=== PATIENT | male | born 1955 | race African-American/Black ===

== ENCOUNTER 2018-08-19 02:04 | Emergency (ER) | payer MEDICAID ==
[~2018-08-19] VITALS: Ht 188 cm; Wt 68.2 kg
[~2018-08-19 02:04] MED LIST: BLOOD PRESSURE MED; DOES NOT REMEMBER
[2018-08-19] MEDS ORDERED: hyDRALAzine 10mg tablet PO SCH (02:30)
[2018-08-19 02:58] VITALS: BP 172/120
== END 2018-08-19 02:59 | disposition home or self-care (01) ==
LOC: ER 02:04
DX: I10 Essential (primary) hypertension (principal); F15.90 Other stimulant use, unspecified, uncomplicated; F11.90 Opioid use, unspecified, uncomplicated; Z59.0 Homelessness
CPT/HCPCS: 99282

== ENCOUNTER 2019-02-25 11:05 | Emergency (ER) | payer MEDICARE, MEDICAID ==
[~2019-02-25] VITALS: Ht 188 cm; Wt 64.0 kg
[2019-02-25 12:40] VITALS: BP 148/100
== END 2019-02-25 12:42 | disposition home or self-care (01) ==
LOC: ER 11:06
DX: S50.852A Superficial foreign body of left forearm, initial encounter (principal); I10 Essential (primary) hypertension; F17.200 Nicotine dependence, unspecified, uncomplicated; F15.90 Other stimulant use, unspecified, uncomplicated; F11.90 Opioid use, unspecified, uncomplicated; Z59.0 Homelessness; W45.8XXA Other foreign body or object entering through skin, initial encounter; Y93.89 Activity, other specified; Y92.89 Other specified places as the place of occurrence of the external cause; Y99.8 Other external cause status
CPT/HCPCS: 73090; 99283

== ENCOUNTER 2019-06-14 17:24 | Inpatient (IN) | payer MEDICARE, MEDICAID ==
[~2019-06-14] VITALS: Ht 188 cm; Wt 81.8 kg
[2019-06-14 19:40] LABS: BASOPHILS % (AUTO) 0.9 % (0-1); EOSINOPHILS # (AUTO) 0.1 X10'3 (0-0.9); EOSINOPHILS % (AUTO) 1.9 % (0-6); HEMATOCRIT 33.1 % (42.0-52.0); HEMOGLOBIN 10.2 g/dl (14.0-17.9); LYMPHOCYTES # (AUTO) 1.2 X10'3 (1.1-4.8); LYMPHOCYTES % (AUTO) 24.9 % (21-51); MEAN CORPUSCULAR HEMOGLOBIN 22.7 PG (27.0-31.0); MEAN CORPUSCULAR HGB CONC 30.8 g/dL (33.0-36.5); MEAN CORPUSCULAR VOLUME 73.6 FL (78-98); MEAN PLATELET VOLUME 8.5 FL (7.4-10.4); MONOCYTES # (AUTO) 0.7 X10'3 (0-0.9); NEUTROPHILS # (AUTO) 2.7 X10'3 (1.8-7.7); NEUTROPHILS % (AUTO) 57.3 % (42-75); PLATELET COUNT 224 X10'3 (140-440); RED CELL DISTRIBUTION WIDTH 15.3 % (11.5-14.5); WHITE BLOOD COUNT 4.7 X10'3 (4.5-11.0)
[2019-06-14 19:52] LABS: PARTIAL THROMBOPLASTIN TIME 27 SECONDS (22-32)
[2019-06-14 19:53] LABS: ALANINE AMINOTRANSFERASE 25 U/L (12-78); ALBUMIN 2.6 G/DL (3.4-5.0); ALBUMIN/GLOBULIN RATIO 0.5 (1.1-1.5); ALKALINE PHOSPHATASE 112 IU/L (46-116); ANION GAP 6 (8-16); ASPARTATE AMINO TRANSFERASE 43 U/L (10-37); BILIRUBIN,TOTAL 0.4 MG/DL (0.1-1.0); BLOOD UREA NITROGEN 35 MG/DL (7-18); BUN/CREATININE RATIO 25.4 (5.4-32.0); CALCIUM 8.9 MG/DL (8.5-10.1); CHLORIDE 104 MMOL/L (99-107); CREATININE 1.38 MG/DL (0.60-1.10); GLUCOSE 124 MG/DL (70-104); POTASSIUM 3.8 MMOL/L (3.5-5.1); SODIUM 138 MMOL/L (135-145); TOTAL CARBON DIOXIDE 28.5 MMOL/L (24-32); TOTAL PROTEIN 7.8 G/DL (6.4-8.2); eGFR 62 ML/MIN
[2019-06-14 19:56] LABS: ETHANOL < 0.010 GM/DL (0.0-0.010); LACTIC SEPSIS 1.6 MMOL/L (0.4-2.0); TROPONIN I 0.16 NG/ML (0.0-0.05)
--- NOTE | 2019-06-14 21:37 | NUR ---
PT UNABLE TO ACCURATELY STATE HIS HOME MEDICATIONS, STATES "I TAKE A BLOOD PRESSURE PILL" BUT IS UNSURE OF NAME OR DOSAGE.
[2019-06-14 21:41] LABS: CLARITY,URINE CLEAR (Clear); COLOR,URINE YELLOW (Yellow); GLUCOSE, URINE 100 mg/dl (Neg); KETONES,URINE NEGATIVE (Neg); LEUKOCYTE ESTERASE ,URINE NEGATIVE (Neg); NITRITES, URINE NEGATIVE (Neg); OCCULT BLOOD,URINE SMALL (Neg); PROTEIN,URINE NEGATIVE (Neg); UA COLLECTION TYPE URINAL
[2019-06-14 21:43] LABS: BACTERIA,URINE NONE SEEN /HPF (Neg); MUCUS STRANDS NONE SEEN /LPF (Neg); SQUAMOUS EPITHELIAL CELL,UR NONE SEEN /LPF (FEW); WBC,URINE NONE SEEN /HPF (0-4)
[2019-06-14 21:54] LABS: URINE AMPHETAMINE SCREEN POSITIVE (Neg); URINE BARBITUATE SCREEN NEGATIVE (Neg); URINE BENZODIAZEPINES SCREEN NEGATIVE (Neg); URINE CANNABINOID SCREEN NEGATIVE (Neg); URINE COCAINE SCREEN NEGATIVE (Neg); URINE METHADONE SCREEN NEGATIVE (Neg); URINE OPIATE SCREEN POSITIVE (Neg); URINE PHENCYCLIDINE SCREEN NEGATIVE (Neg)
[2019-06-14] MEDS ORDERED: ondansetron/PF 4mg/2ml inj IV PRN (22:55)
[2019-06-14] MEDS ORDERED: HYDROcodone/acetaminophen 10/325mg tab PO PRN (22:55)
[2019-06-14] MEDS ORDERED: acetaminophen 325mg tablet PO PRN (22:55)
[2019-06-14] MEDS ORDERED: mag hydrox/Alum hydrox/simeth 30ml oral suspension PO PRN (22:55)
[2019-06-14] MEDS ORDERED: magnesium hydroxide 30ml (MOM) UD suspension PO PRN (22:55)
--- NOTE | 2019-06-15 05:50 | NUR ---
HOSPITALIST ANGELICA NOTIFIED OF PT CONTINUED ELEVATED TROPONIN. NO NEW ORDERS AT THIS TIME.
[2019-06-15 05:54] LABS: ALANINE AMINOTRANSFERASE 24 U/L (12-78); ALBUMIN 2.4 G/DL (3.4-5.0); ALBUMIN/GLOBULIN RATIO 0.5 (1.1-1.5); ALKALINE PHOSPHATASE 117 IU/L (46-116); ANION GAP 4 (8-16); ASPARTATE AMINO TRANSFERASE 40 U/L (10-37); BILIRUBIN,TOTAL 0.4 MG/DL (0.1-1.0); BLOOD UREA NITROGEN 32 MG/DL (7-18); BUN/CREATININE RATIO 26.4 (5.4-32.0); CALCIUM 8.7 MG/DL (8.5-10.1); CHLORIDE 106 MMOL/L (99-107); CREATININE 1.21 MG/DL (0.60-1.10); GLUCOSE 93 MG/DL (70-104); POTASSIUM 4.3 MMOL/L (3.5-5.1); SODIUM 139 MMOL/L (135-145); TOTAL PROTEIN 7.6 G/DL (6.4-8.2); TROPONIN I 0.18 NG/ML (0.0-0.05); eGFR 72 ML/MIN
--- NOTE | 2019-06-15 07:20 | NUR ---
Report received from Macrina PAIZ in the ED. Patient brought to room 3027B. Placed in bed, oriented to room and call light. Tele monitor applied, IV assessed, nasal swab taken. Patient stable at this time, has no complaints. Will continue to monitor patient.
[2019-06-15] MEDS: heparin, porcine 5000 units/ml vial SQ SCH ×3 (08:00→20:00)
--- NOTE | 2019-06-15 08:41 | NUR ---
Pt refused AM dose of SQ heparin. Educated patient on purpose of medication and risks associated with not receiving medication. Pt states that he still does not want this medication. Notified MD Stern or pt refusal of medication.
[2019-06-15 09:23] LABS: BASOPHILS # (AUTO) 0.1 X10'3 (0-0.2); BASOPHILS % (AUTO) 1.2 % (0-1); EOSINOPHILS # (AUTO) 0.1 X10'3 (0-0.9); HEMOGLOBIN 10.8 g/dl (14.0-17.9); MONOCYTES # (AUTO) 0.5 X10'3 (0-0.9); NEUTROPHILS % (AUTO) 64.6 % (42-75)
[2019-06-15 09:25] LABS: EOSINOPHILS % (AUTO) 2.9 % (0-6); HEMATOCRIT 34.6 % (42.0-52.0); LYMPHOCYTES # (AUTO) 0.8 X10'3 (1.1-4.8); MEAN CORPUSCULAR HEMOGLOBIN 22.9 PG (27.0-31.0); MEAN CORPUSCULAR HGB CONC 31.3 g/dL (33.0-36.5); MEAN CORPUSCULAR VOLUME 73.2 FL (78-98); MEAN PLATELET VOLUME 8.9 FL (7.4-10.4); MONOCYTES % (AUTO) 12.3 % (2-12); NEUTROPHILS # (AUTO) 2.8 X10'3 (1.8-7.7); PLATELET COUNT 240 X10'3 (140-440); RED BLOOD COUNT 4.72 X10'6 (4.70-6.10); RED CELL DISTRIBUTION WIDTH 15.1 % (11.5-14.5); WHITE BLOOD COUNT 4.4 X10'3 (4.5-11.0)
[2019-06-15 09:32] LABS: D-DIMER 1.43 MG/L FEU (0-0.50)
[2019-06-15 11:00] VITALS: BP 168/90
[2019-06-15] MEDS: furosemide 20 MG/2 ML vial IV SCH ×2 (11:28→20:00)
[2019-06-15] MEDS: metoprolol succinate 25mg (24-HOUR) SR. Tablet PO SCH (11:28)
[2019-06-15] MEDS ORDERED: NO HOME MEDS (12:19)
--- NOTE | 2019-06-15 15:00 | NUR ---
Patient refused 1500 vital signs. Patient wakes to voice, is on tele monitor, alert but agitated. Will continue to monitor.
--- NOTE | 2019-06-15 17:49 | NUR ---
Patient refused 1500 VS as well as AM heparin. Patient is noncompliant with care, does not want to be awaked for any care activities. Explained to patient that we are trying provide care for him and he says "I don't need anything, just leave me alone". Patient resistant to care, wants to keep sleeping. Will continue to monitor patient and provide support.
[2019-06-15 18:00] VITALS: BP 164/82
--- NOTE | 2019-06-15 18:22 | NUR ---
Problems reprioritized. Patient report given, questions answered & plan of care reviewed with Prudence RN. Patient laying in bed, eyes closed.
--- NOTE | 2019-06-15 18:57 | NUR ---
Patient in room PCU 3027. I have received report from Carmen PAIZ and had the opportunity to ask questions and assume patient care. patient is resting.
--- NOTE | 2019-06-15 21:20 | NUR ---
Attempted to give medication and patient declined. He stated that he did not want to take medication.
[2019-06-15 22:00] VITALS: BP 197/110
[2019-06-15] MEDS ORDERED: metoprolol tartrate 25mg tablet PO ONE (22:55)
[2019-06-16] MEDS ORDERED: cloNIDine 0.1 mg tablet PO ONE (01:20)
[2019-06-16 02:00] VITALS: BP 182/113
--- NOTE | 2019-06-16 03:41 | NUR ---
provider was notified of patient's high blood pressure snd meds were given per MD order. NO improvement in BP an doctor is aware. Addendum: 06/16/19 at 0344 by Summer Morales RN Amended: Links added.
[2019-06-16 06:00] VITALS: BP 176/114
--- NOTE | 2019-06-16 06:06 | NUR ---
Problems reprioritized. Patient report given, questions answered & plan of care reviewed with Carmen PAIZ.Patient is resting but had high blood pressure last night despite medication been given. Will continue motoring patient's BP.
--- NOTE | 2019-06-16 06:19 | NUR ---
Patient in room PCU 3027P. I have received report from Summer PAIZ and had the opportunity to ask questions and assume patient care.
[2019-06-16 07:06] LABS: BASOPHILS # (AUTO) 0.1 X10'3 (0-0.2); MONOCYTES # (AUTO) 0.6 X10'3 (0-0.9); NEUTROPHILS # (AUTO) 3.2 X10'3 (1.8-7.7); RED CELL DISTRIBUTION WIDTH 14.7 % (11.5-14.5)
[2019-06-16 07:09] LABS: BASOPHILS % (AUTO) 1.1 % (0-1); EOSINOPHILS % (AUTO) 0.5 % (0-6); HEMATOCRIT 40.4 % (42.0-52.0); HEMOGLOBIN 12.9 g/dl (14.0-17.9); LYMPHOCYTES # (AUTO) 1.1 X10'3 (1.1-4.8); LYMPHOCYTES % (AUTO) 21.4 % (21-51); MEAN CORPUSCULAR VOLUME 71.8 FL (78-98); MEAN PLATELET VOLUME 9.2 FL (7.4-10.4); MONOCYTES % (AUTO) 11.8 % (2-12); NEUTROPHILS % (AUTO) 65.2 % (42-75); PLATELET COUNT 300 X10'3 (140-440); RED BLOOD COUNT 5.63 X10'6 (4.70-6.10)
[2019-06-16 07:26] LABS: ALANINE AMINOTRANSFERASE 21 U/L (12-78); ALBUMIN 2.8 G/DL (3.4-5.0); ALBUMIN/GLOBULIN RATIO 0.4 (1.1-1.5); ALKALINE PHOSPHATASE 107 IU/L (46-116); ANION GAP 8 (8-16); ASPARTATE AMINO TRANSFERASE 39 U/L (10-37); BILIRUBIN,TOTAL 0.6 MG/DL (0.1-1.0); BLOOD UREA NITROGEN 29 MG/DL (7-18); BUN/CREATININE RATIO 25.2 (5.4-32.0); CALCIUM 9.4 MG/DL (8.5-10.1); CHLORIDE 99 MMOL/L (99-107); CREATININE 1.15 MG/DL (0.60-1.10); GLUCOSE 107 MG/DL (70-104); POTASSIUM 3.7 MMOL/L (3.5-5.1); SODIUM 133 MMOL/L (135-145); TOTAL CARBON DIOXIDE 25.9 MMOL/L (24-32); TOTAL PROTEIN 9.2 G/DL (6.4-8.2); eGFR 77 ML/MIN
[2019-06-16] MEDS: heparin, porcine 5000 units/ml vial SQ SCH (08:00)
[2019-06-16] MEDS: furosemide 20 MG/2 ML vial IV SCH (08:01)
[2019-06-16] MEDS: metoprolol succinate 25mg (24-HOUR) SR. Tablet PO SCH (08:01)
--- NOTE | 2019-06-16 08:05 | NUR ---
Patient refused heparin SubQ this morning. Explained to patient the purpose of the medication and need to have medication, discussed risks of refusing medication. Patient understands, refuses any injections, states "I don't want any needles". Will continue to monitor patient and encourage compliance with care plan.
[2019-06-16] MEDS ORDERED: furosemide 20 MG/2 ML vial IV SCH ×2 (09:11→20:00)
[2019-06-16] MEDS ORDERED: lisinopril 10 MG tablet PO SCH (09:12)
--- NOTE | 2019-06-16 09:17 | NUR ---
Paged hospitalist, Dr. Huston, RE lasix IV order for clarification. PAGER ID: [phone] MESSAGE: Carmen x [phone]. RE Belkis Segovia 3026S. Patient had 20mg Lasix IV this AM. Do you want me to give the 40mg Lasix IV dose now as well? Thank you.
[2019-06-16] MEDS ORDERED: furosemide 20 MG/2 ML vial IV ONE ×2 (09:30→09:45)
[2019-06-16 09:53] VITALS: BP_SYST 171
--- NOTE | 2019-06-16 10:02 | NUR ---
Patient refused Lasix IV. I explained to the patient that his blood pressure is very elevated and he has signs of fluid overload. He again refuses the medication, stating "It just makes me piss all over myself, I don't want it". Reinforced the importance of the medication, he again refuses. Notified charge account identification clerk that patient is refusing care. Noncompliant care plan is in place. Also notified Dr. Huston that patient is refusing medications and vitals. Will continue to monitor patient.
[2019-06-16] MEDS ORDERED: LISI10TA4 PO (10:49)
[2019-06-16] MEDS ORDERED: FURO20TA4 PO (10:49)
--- NOTE | 2019-06-16 11:02 | NUR ---
Per MD order by Dr. Huston, patient is stable for discharge, is refusing all medications and vitals. Per MD patient can be discharged home. I spoke with the patient and states that he has nowhere to go at this time and wants to stay until tomorrow. I have called Kamila from case management, left message and am waiting for a return call.
--- NOTE | 2019-06-16 11:10 | NUR ---
Patient refused 1100 vital signs. Refusing all medications, removed tele monitor himself and is refusing to have it reapplied.
--- NOTE | 2019-06-16 12:03 | NUR ---
Per MD order by Dr. Huston, patient is stable for discharge home. Patient assessed by case management, given clothing, cane, and cab voucher. Cab called and will pick patient up and take to his desired drop [facility]. Discharge packet printed and reviewed with the patient, refuses education. IV removed with cannula intact, tele monitor removed. Patient belongings sent with patient and valuables returned from safe. Prescriptions called to [facility] on [address]. Patient given clothing and cane, as well as cab voucher. Patient escorted to waiting cab via wheelchair to go home.
== END 2019-06-16 10:55 | disposition short-term general hospital (02) | DRG 682 ==
LOC: EDBD → ER 17:25 → ED HOLD 23:03 → PCU 3S 06-15 07:27
PROVIDERS: ADMIT Internal Medicine; ATTEND Internal Medicine
DX: N17.9 Acute kidney failure, unspecified (principal); I50.33 Acute on chronic diastolic (congestive) heart failure; I21.A1 Myocardial infarction type 2; R55 Syncope and collapse; I11.0 Hypertensive heart disease with heart failure; F15.10 Other stimulant abuse, uncomplicated; F17.210 Nicotine dependence, cigarettes, uncomplicated; Z82.49 Family history of ischemic heart disease and other diseases of the circulatory system; D64.9 Anemia, unspecified; Z59.0 Homelessness; W18.39XA Other fall on same level, initial encounter; Y93.89 Activity, other specified; Y92.89 Other specified places as the place of occurrence of the external cause; Y99.8 Other external cause status
CPT/HCPCS: 36415; 70450; 71045; 80053; 80305; 80320; 81001; 82140; 82948; 83605; 83880; 84484; 85025; 85379; 85610; 85730; 87040; 87081; 93005; 93306; 99285; G0378; J1644; J1940

== ENCOUNTER 2019-06-22 13:42 | Inpatient (IN) | payer MEDICARE, MEDICAID ==
[~2019-06-22] VITALS: Ht 188 cm; Wt 62.8 kg
[2019-06-22] MEDS: pantoprazole 40 MG vial IV SCH (08:00)
[~2019-06-22 13:42] MED LIST changes: -BLOOD PRESSURE MED; -DOES NOT REMEMBER; +FURO20TA4 PO; +LISI10TA4 PO
[2019-06-22 14:56] LABS: BASOPHILS # (AUTO) 0.1 X10'3 (0-0.2); BASOPHILS % (AUTO) 0.5 % (0-1); EOSINOPHILS % (AUTO) 0 % (0-6); HEMATOCRIT 37.6 % (42.0-52.0); HEMOGLOBIN 11.9 g/dl (14.0-17.9); LYMPHOCYTES # (AUTO) 0.2 X10'3 (1.1-4.8); LYMPHOCYTES % (AUTO) 0.8 % (21-51); MEAN CORPUSCULAR HEMOGLOBIN 22.8 PG (27.0-31.0); MEAN CORPUSCULAR HGB CONC 31.6 g/dL (33.0-36.5); MEAN PLATELET VOLUME 8.8 FL (7.4-10.4); MONOCYTES # (AUTO) 1.3 X10'3 (0-0.9); MONOCYTES % (AUTO) 6.5 % (2-12); NEUTROPHILS # (AUTO) 18.3 X10'3 (1.8-7.7); NEUTROPHILS % (AUTO) 92.2 % (42-75); PLATELET COUNT 310 X10'3 (140-440); RED BLOOD COUNT 5.22 X10'6 (4.70-6.10); RED CELL DISTRIBUTION WIDTH 15.1 % (11.5-14.5); WHITE BLOOD COUNT 19.9 X10'3 (4.5-11.0)
[2019-06-22] MEDS ORDERED: CefTRIAXone 2gm/D5W 50ml 50 ML IV ONE (15:10)
[2019-06-22 15:13] LABS: ALANINE AMINOTRANSFERASE 78 U/L (12-78); ALBUMIN 2.7 G/DL (3.4-5.0); ALBUMIN/GLOBULIN RATIO 0.5 (1.1-1.5); ALKALINE PHOSPHATASE 99 IU/L (46-116); ANION GAP 24 (8-16); ASPARTATE AMINO TRANSFERASE 89 U/L (10-37); BILIRUBIN,TOTAL 0.7 MG/DL (0.1-1.0); CALCIUM 9.5 MG/DL (8.5-10.1); CHLORIDE 91 MMOL/L (99-107); CREATININE 9.51 MG/DL (0.60-1.10); GLUCOSE 102 MG/DL (70-104); POTASSIUM 5.7 MMOL/L (3.5-5.1); SODIUM 134 MMOL/L (135-145); TOTAL CARBON DIOXIDE 18.7 MMOL/L (24-32); TOTAL PROTEIN 8.7 G/DL (6.4-8.2); eGFR 7 ML/MIN
[2019-06-22 15:15] LABS: LACTIC SEPSIS 1.8 MMOL/L (0.4-2.0)
[2019-06-22 15:22] LABS: ETHANOL < 0.010 GM/DL (0.0-0.010); TROPONIN I 0.11 NG/ML (0.0-0.05)
[2019-06-22 15:23] LABS: BLOOD UREA NITROGEN 206 MG/DL (7-18); BUN/CREATININE RATIO 21.7 (5.4-32.0)
[2019-06-22] MEDS ORDERED: normal saline 1000ML IV soln IVB ONE (15:35)
[2019-06-22 15:55] LABS: CLARITY,URINE SLIGHTLY CLOUDY (Clear); COLOR,URINE YELLOW (Yellow); GLUCOSE, URINE NEGATIVE (Neg); KETONES,URINE NEGATIVE (Neg); LEUKOCYTE ESTERASE ,URINE TRACE (Neg); NITRITES, URINE NEGATIVE (Neg); OCCULT BLOOD,URINE LARGE (Neg); PROTEIN,URINE 100 mg/dl (Neg); UROBILINOGEN,URINE 0.2 E.U/dL (0.2-1.0)
[2019-06-22 15:57] LABS: URINE AMPHETAMINE SCREEN POSITIVE (Neg); URINE BARBITUATE SCREEN NEGATIVE (Neg); URINE BENZODIAZEPINES SCREEN NEGATIVE (Neg); URINE CANNABINOID SCREEN NEGATIVE (Neg); URINE COCAINE SCREEN NEGATIVE (Neg); URINE METHADONE SCREEN NEGATIVE (Neg); URINE OPIATE SCREEN POSITIVE (Neg); URINE PHENCYCLIDINE SCREEN NEGATIVE (Neg)
[2019-06-22 16:02] LABS: UA COLLECTION TYPE CLN CATCH MIDSTREAM
[2019-06-22 16:03] LABS: CREATINE KINASE 821 U/L (39-308)
[2019-06-22 16:03] LABS: BACTERIA,URINE 3+ /HPF (Neg); MUCUS STRANDS FEW /LPF (Neg); SQUAMOUS EPITHELIAL CELL,UR MODERATE /LPF (FEW)
[2019-06-22 16:04] LABS: AMORPHOUS URATES 2+; COARSE GRANULAR CAST 0-3 /LPF (NEGATIVE)
[2019-06-22] MEDS ORDERED: NO HOME MEDS (17:24)
[2019-06-22] MEDS: K, MAG and/or Phos replacement - Verify level? MC SCH (18:00)
[2019-06-22] MEDS ORDERED: normal saline 1000ml 1,000 ML IV SCH (18:02)
[2019-06-22] MEDS ORDERED: magnesium 2GM in 50ml NS 50 ML IV PRN (18:05)
[2019-06-22] MEDS ORDERED: sodium phosphate inj. 30 MMOL in dextrose 5%-water 250 ML IV PRN (18:05)
[2019-06-22] MEDS ORDERED: magnesium 4gm in 100ml NS 100 ML IV PRN (18:05)
[2019-06-22] MEDS ORDERED: acetaminophen 325mg tablet PO PRN (18:05)
[2019-06-22] MEDS ORDERED: ondansetron/PF 4mg/2ml inj IV PRN (18:05)
[2019-06-22] MEDS ORDERED: magnesium Cl slow-release 64mg tablet PO PRN (18:05)
[2019-06-22] MEDS ORDERED: sodium bicarbonate (8.4%) inj. 150 MEQ in dextrose 5%-water 1,000 ML IV SCH (18:15)
--- NOTE | 2019-06-22 18:53 | NUR ---
Yannick carolina in [facility] - 06/22/19 at 1854 by LOU CALLED U/S AT 18:52 SHE WILL BE IN [place]
[2019-06-22] MEDS: sodium bicarbonate (8.4%) inj. 75 MEQ in dextrose 5% water 500ml 500 ML IV SCH ×2 (19:39→23:10)
[2019-06-22 19:50] LABS: ABG BASE EXCESS -10.3 mmol/L (-2.0-3.0); ABG HCO3 15.3 mmol/L (22.0-26.0); ABG OXYGEN SATURATION 98.6 % (95-98); ABG PCO2 (T) 33.1 mmHg (35.0-45.0); ABG PH (T) 7.283 (7.350-7.450); ABG PO2 (T) 140.7 mmHg (83-108); FCOHb 0.3 % (0.5-1.5); FLOW 4 L/min; FMetHb 0.3 % (0.3-1.12); RESPIRATORY RATE (OBSERVED) 12 b/min; TOTAL HEMOGLOBIN 12.1 G/dl (14.0-17.9)
--- NOTE | 2019-06-22 19:50 | NUR ---
Pt refused Hernandez catheter. Bladder scanned post residual and there was 0 remaining.
[2019-06-22 20:00] VITALS: BP 139/73
[2019-06-22] MEDS: CefTRIAXone/D5W-Rocephin 1gm 50 ML IV SCH (20:00)
[2019-06-22] MEDS: sodium polystyrene sulfonate 15gm/60ml oral suspension PO SCH (20:33)
[2019-06-22 21:00] VITALS: BP 147/88
[2019-06-22 22:00] VITALS: BP 153/79
[2019-06-22 23:00] VITALS: BP 146/95
[2019-06-22] MEDS: heparin, porcine 5000 units/ml vial SQ SCH ×2 (23:45→23:58)
[2019-06-22 23:50] LABS: ALANINE AMINOTRANSFERASE 70 U/L (12-78); ALBUMIN 2.4 G/DL (3.4-5.0); ALBUMIN/GLOBULIN RATIO 0.5 (1.1-1.5); ALKALINE PHOSPHATASE 90 IU/L (46-116); ANION GAP 18 (8-16); ASPARTATE AMINO TRANSFERASE 83 U/L (10-37); BILIRUBIN,TOTAL 0.6 MG/DL (0.1-1.0); CALCIUM 8.5 MG/DL (8.5-10.1); CHLORIDE 97 MMOL/L (99-107); CREATININE 8.61 MG/DL (0.60-1.10); GLUCOSE 123 MG/DL (70-104); MAGNESIUM 2.4 MG/DL (1.5-2.4); POTASSIUM 5.4 MMOL/L (3.5-5.1); SODIUM 135 MMOL/L (135-145); TOTAL CARBON DIOXIDE 20.2 MMOL/L (24-32); TOTAL PROTEIN 7.5 G/DL (6.4-8.2); eGFR 8 ML/MIN
[2019-06-22 23:51] LABS: BLOOD UREA NITROGEN 208 MG/DL (7-18); BUN/CREATININE RATIO 24.2 (5.4-32.0); PHOSPHORUS 10.3 MG/DL (2.3-4.5)
--- NOTE | 2019-06-22 23:59 | NUR ---
Pt remains non compliant, refusing Heparin SQ
[2019-06-23] VITALS (24 sets, daily range): BP systolic 128–160; BP diastolic 77–96
[2019-06-23] MEDS: sodium bicarbonate (8.4%) inj. 75 MEQ in dextrose 5% water 500ml 500 ML IV SCH ×4 (03:12→13:45)
[2019-06-23 03:46] LABS: ABG BASE EXCESS -1.6 mmol/L (-2.0-3.0); ABG HCO3 22.6 mmol/L (22.0-26.0); ABG OXYGEN SATURATION 98.6 % (95-98); ABG PCO2 (T) 36.3 mmHg (35.0-45.0); ABG PH (T) 7.412 (7.350-7.450); ABG PO2 (T) 130.6 mmHg (83-108); ALLEN'S TEST Positive; FCOHb 0.3 % (0.5-1.5); FLOW 4 L/min; FMetHb 0.2 % (0.3-1.12); FO2Hb 98.1 % (94-100)
--- NOTE | 2019-06-23 04:33 | NUR ---
Pt still refusing Hernandez Catheter after repeated attempts to place one. He is also resistive to labs, meds, and anything that requires him to be touched.
[2019-06-23 05:25] LABS: BASOPHILS # (AUTO) 0.1 X10'3 (0-0.2); BASOPHILS % (AUTO) 0.3 % (0-1); EOSINOPHILS % (AUTO) 0 % (0-6); HEMATOCRIT 34.8 % (42.0-52.0); HEMOGLOBIN 11.1 g/dl (14.0-17.9); LYMPHOCYTES # (AUTO) 0.4 X10'3 (1.1-4.8); LYMPHOCYTES % (AUTO) 2.2 % (21-51); MEAN CORPUSCULAR HEMOGLOBIN 22.6 PG (27.0-31.0); MEAN CORPUSCULAR HGB CONC 31.8 g/dL (33.0-36.5); MEAN CORPUSCULAR VOLUME 71.2 FL (78-98); MEAN PLATELET VOLUME 8.9 FL (7.4-10.4); MONOCYTES # (AUTO) 1.9 X10'3 (0-0.9); MONOCYTES % (AUTO) 10.1 % (2-12); NEUTROPHILS # (AUTO) 16.3 X10'3 (1.8-7.7); NEUTROPHILS % (AUTO) 87.4 % (42-75); PLATELET COUNT 249 X10'3 (140-440); RED BLOOD COUNT 4.89 X10'6 (4.70-6.10); RED CELL DISTRIBUTION WIDTH 14.6 % (11.5-14.5); WHITE BLOOD COUNT 18.7 X10'3 (4.5-11.0)
--- NOTE | 2019-06-23 05:30 | NUR ---
Rash still seems to be covering same body area, but not as raised on the lower torso. Addendum: 06/23/19 at 0600 by Carole Heck RN Note placed in wrong chart, please disregard
[2019-06-23 05:54] LABS: ALANINE AMINOTRANSFERASE 64 U/L (12-78); ALBUMIN 2.2 G/DL (3.4-5.0); ALBUMIN/GLOBULIN RATIO 0.4 (1.1-1.5); ALKALINE PHOSPHATASE 96 IU/L (46-116); ANION GAP 21 (8-16); ASPARTATE AMINO TRANSFERASE 79 U/L (10-37); BILIRUBIN,TOTAL 0.7 MG/DL (0.1-1.0); CALCIUM 8.4 MG/DL (8.5-10.1); CHLORIDE 97 MMOL/L (99-107); GLUCOSE 118 MG/DL (70-104); MAGNESIUM 2.3 MG/DL (1.5-2.4); POTASSIUM 4.7 MMOL/L (3.5-5.1); SODIUM 139 MMOL/L (135-145); TOTAL CARBON DIOXIDE 20.9 MMOL/L (24-32); TOTAL PROTEIN 7.5 G/DL (6.4-8.2); eGFR 9 ML/MIN
[2019-06-23 06:16] LABS: BLOOD UREA NITROGEN 195 MG/DL (7-18); PHOSPHORUS 9.3 MG/DL (2.3-4.5)
[2019-06-23] MEDS: K, MAG and/or Phos replacement - Verify level? MC SCH (07:18)
[2019-06-23] MEDS: pantoprazole 40 MG vial IV SCH (07:57)
[2019-06-23] MEDS: heparin, porcine 5000 units/ml vial SQ SCH ×2 (08:00→16:00)
[2019-06-23] MEDS: CefTRIAXone/D5W-Rocephin 1gm 50 ML IV SCH ×2 (08:05→20:31)
[2019-06-23] MEDS: sodium polystyrene sulfonate 15gm/60ml oral suspension PO SCH ×2 (08:06→20:00)
[2019-06-23 08:26] LABS: BUN/CREATININE RATIO 25.2 (5.4-32.0); CREATININE 7.74 MG/DL (0.60-1.10)
[2019-06-23 09:53] LABS: ALBUMIN 2.1 G/DL (3.4-5.0); ANION GAP 16 (8-16); CHLORIDE 97 MMOL/L (99-107); CREATININE 6.92 MG/DL (0.60-1.10); GLUCOSE 124 MG/DL (70-104); PHOSPHORUS 8.4 MG/DL (2.3-4.5); POTASSIUM 4.1 MMOL/L (3.5-5.1); SODIUM 140 MMOL/L (135-145); TOTAL CARBON DIOXIDE 26.7 MMOL/L (24-32); eGFR 10 ML/MIN
[2019-06-23 09:57] LABS: BLOOD UREA NITROGEN 182 MG/DL (7-18); BUN/CREATININE RATIO 26.3 (5.4-32.0)
--- NOTE | 2019-06-23 11:34 | NUR ---
Pt with low BMI of 16.4 using current bed scaled wt of 57.8 kg. Pt recently admitted with a documented wt of 81.82 kg using standing scale taken 06/14/19 however this seems unlikely as pt with a documented wt of 64 kg taken 02/25/19 using chair scale. Unable to accurately assess for wt loss at this time given fluctuations in documented wt hx. Pt admit with ALOC with hx substance abuse. Per physical assessment pt is A/O x 2, agitated, restless, and resistive to care. Patient's diet has just been advanced to renal from NPO, pending first meal. Pt documented with 100% PO intake on regular diet at last admit 06/15-06/16 meeting nutrient needs. Pt with no decrease in muscle strength however with bilat foot 3+ edema. Pt currently lacks a minimum of two criteria for malnutrition. Will continue to follow and monitor malnutrition criteria throughout LOS. Addendum: 06/23/19 at [address] Amended: Links added.
[2019-06-23 15:27] LABS: ALBUMIN 1.9 G/DL (3.4-5.0); ANION GAP 15 (8-16); CALCIUM 7.9 MG/DL (8.5-10.1); CHLORIDE 97 MMOL/L (99-107); CREATININE 6.18 MG/DL (0.60-1.10); GLUCOSE 145 MG/DL (70-104); PHOSPHORUS 7.5 MG/DL (2.3-4.5); SODIUM 141 MMOL/L (135-145); TOTAL CARBON DIOXIDE 29.5 MMOL/L (24-32); eGFR 11 ML/MIN
[2019-06-23 15:30] LABS: BLOOD UREA NITROGEN 172 MG/DL (7-18); BUN/CREATININE RATIO 27.8 (5.4-32.0)
[2019-06-23] MEDS: normal saline 1000ml 1,000 ML IV SCH ×2 (16:27→23:55)
--- NOTE | 2019-06-23 18:30 | NUR ---
Patient in room CICU 2009. I have received report from IZABEL Soto and had the opportunity to ask questions and assume patient care.
[2019-06-23 21:31] LABS: ANION GAP 10 (8-16); CALCIUM 7.9 MG/DL (8.5-10.1); CHLORIDE 100 MMOL/L (99-107); CREATININE 5.52 MG/DL (0.60-1.10); GLUCOSE 124 MG/DL (70-104); PHOSPHORUS 6.7 MG/DL (2.3-4.5); POTASSIUM 3.8 MMOL/L (3.5-5.1); SODIUM 141 MMOL/L (135-145); TOTAL CARBON DIOXIDE 30.8 MMOL/L (24-32); eGFR 13 ML/MIN
[2019-06-23 21:32] LABS: BLOOD UREA NITROGEN 163 MG/DL (7-18); BUN/CREATININE RATIO 29.5 (5.4-32.0)
--- NOTE | 2019-06-23 22:14 | NUR ---
Patient being noncompliant with most care. Refused to take kayexalate. refused bath. refused blood draw, resulting in pulling from PIV. refusing to be turned. Despite education patient continues to be noncompliant.
[2019-06-24] VITALS (24 sets, daily range): BP systolic 129–179; BP diastolic 77–105
[2019-06-24] MEDS: normal saline 1000ml 1,000 ML IV SCH ×3 (05:15→21:55)
[2019-06-24 05:22] LABS: BASOPHILS % (AUTO) 0.2 % (0-1); EOSINOPHILS % (AUTO) 0.1 % (0-6); HEMATOCRIT 32.2 % (42.0-52.0); HEMOGLOBIN 10.4 g/dl (14.0-17.9); LYMPHOCYTES # (AUTO) 0.5 X10'3 (1.1-4.8); LYMPHOCYTES % (AUTO) 4.1 % (21-51); MEAN CORPUSCULAR HEMOGLOBIN 22.7 PG (27.0-31.0); MEAN CORPUSCULAR HGB CONC 32.1 g/dL (33.0-36.5); MEAN CORPUSCULAR VOLUME 70.7 FL (78-98); MEAN PLATELET VOLUME 8.2 FL (7.4-10.4); MONOCYTES % (AUTO) 17.6 % (2-12); PLATELET COUNT 222 X10'3 (140-440); RED BLOOD COUNT 4.56 X10'6 (4.70-6.10); RED CELL DISTRIBUTION WIDTH 14.7 % (11.5-14.5); WHITE BLOOD COUNT 11.6 X10'3 (4.5-11.0)
--- NOTE | 2019-06-24 06:20 | NUR ---
Patient in room CICU 2009. I have received report from IZABEL Ricketts and had the opportunity to ask questions and assume patient care.
--- NOTE | 2019-06-24 06:21 | NUR ---
Problems reprioritized. Patient report given, questions answered & plan of care reviewed with IZABEL Cooper.
[2019-06-24 06:22] LABS: ANISOCYTOSIS 1+; MICROCYTOSIS 1+; PLATELET ESTIMATE NORMAL; TOTAL CELLS COUNTED 100
[2019-06-24 06:23] LABS: TARGET CELLS FEW
[2019-06-24 06:56] LABS: ANION GAP 8 (8-16); BLOOD UREA NITROGEN 149 MG/DL (7-18); BUN/CREATININE RATIO 32.9 (5.4-32.0); CHLORIDE 105 MMOL/L (99-107); CREATININE 4.53 MG/DL (0.60-1.10); GLUCOSE 105 MG/DL (70-104); POTASSIUM 3.6 MMOL/L (3.5-5.1); SODIUM 143 MMOL/L (135-145); TOTAL CARBON DIOXIDE 30.2 MMOL/L (24-32); eGFR 16 ML/MIN
[2019-06-24 06:57] LABS: ALANINE AMINOTRANSFERASE 44 U/L (12-78); ALBUMIN 1.9 G/DL (3.4-5.0); ALBUMIN/GLOBULIN RATIO 0.4 (1.1-1.5); ALKALINE PHOSPHATASE 72 IU/L (46-116); ASPARTATE AMINO TRANSFERASE 49 U/L (10-37); BILIRUBIN,TOTAL 0.7 MG/DL (0.1-1.0); CALCIUM 7.9 MG/DL (8.5-10.1); MAGNESIUM 1.8 MG/DL (1.5-2.4); TOTAL PROTEIN 6.4 G/DL (6.4-8.2)
[2019-06-24] MEDS: pantoprazole 40 MG vial IV SCH (07:45)
[2019-06-24] MEDS: CefTRIAXone/D5W-Rocephin 1gm 50 ML IV SCH ×2 (07:45→19:17)
[2019-06-24] MEDS: heparin, porcine 5000 units/ml vial SQ SCH ×4 (07:55→23:30)
[2019-06-24] MEDS: K, MAG and/or Phos replacement - Verify level? MC SCH (07:55)
--- NOTE | 2019-06-24 08:00 | NUR ---
Offered patient to sit upright in chair at bedside for breakfast. Patient refused. Encouragement and education provided.
--- NOTE | 2019-06-24 11:33 | NUR ---
Patient refuses all Heparin injections. aware.
--- NOTE | 2019-06-24 11:49 | NUR ---
Offered patient to ambulate or move to chair at bedside. Patient refused. Encouragement and education provided.
--- NOTE | 2019-06-24 13:17 | NUR ---
Offered patient to get up out of bed for lunch. Patient refused, states he "wants to sleep". Encouragement and education provided.
--- NOTE | 2019-06-24 14:29 | NUR ---
Offered patient to ambulate or sit at bedside. Patient refused. Encouragement and education provided. Patient continues to be fatigued and prefers to sleep.
--- NOTE | 2019-06-24 15:37 | NUR ---
Offered patient to turn and reposition in order to change linen. Patient refused. Patient expressed he "wants to keep sleeping".
--- NOTE | 2019-06-24 17:03 | NUR ---
Patient has refused majority of care through shift. Encouraged and educated patient. Offered patient a bed bath and linen change, patient refused.
[2019-06-24] MEDS ORDERED: potassium Cl 20 mEq SR tablet PO STA (18:00)
[2019-06-24] MEDS ORDERED: furosemide 40mg/4ml inj IV ONE (18:00)
--- NOTE | 2019-06-24 18:29 | NUR ---
Problems reprioritized. Patient report given, questions answered & plan of care reviewed with IZABEL Ricketts.
--- NOTE | 2019-06-24 18:30 | NUR ---
Patient in room CICU 2009. I have received report from IZABEL Cooper and had the opportunity to ask questions and assume patient care.
[2019-06-24] MEDS: hydrALAZINE 20mg/ml inj. IV PRN (22:10)
[2019-06-25] VITALS (24 sets, daily range): BP systolic 148–178; BP diastolic 89–111
[2019-06-25] MEDS ORDERED: labetalol 20mg/4ml (5mg/ml) syringe IV ONE (02:05)
--- NOTE | 2019-06-25 02:15 | NUR ---
July Kimberly,MAGALY notified of patient's high blood pressure. despite giving patient hydralazine, bp remains high. labetalol ordered and given, will continue to monitor.
[2019-06-25 05:56] LABS: BASOPHILS % (AUTO) 0.1 % (0-1); EOSINOPHILS % (AUTO) 0.4 % (0-6); HEMOGLOBIN 10.9 g/dl (14.0-17.9); LYMPHOCYTES # (AUTO) 0.5 X10'3 (1.1-4.8); LYMPHOCYTES % (AUTO) 5.9 % (21-51); MEAN CORPUSCULAR HEMOGLOBIN 22.9 PG (27.0-31.0); MEAN CORPUSCULAR HGB CONC 31.9 g/dL (33.0-36.5); MEAN CORPUSCULAR VOLUME 71.8 FL (78-98); MEAN PLATELET VOLUME 8.5 FL (7.4-10.4); MONOCYTES # (AUTO) 1.6 X10'3 (0-0.9); MONOCYTES % (AUTO) 19.4 % (2-12); NEUTROPHILS # (AUTO) 6.1 X10'3 (1.8-7.7); NEUTROPHILS % (AUTO) 74.2 % (42-75); PLATELET COUNT 185 X10'3 (140-440); RED BLOOD COUNT 4.74 X10'6 (4.70-6.10); RED CELL DISTRIBUTION WIDTH 14.8 % (11.5-14.5); WHITE BLOOD COUNT 8.3 X10'3 (4.5-11.0)
[2019-06-25 06:12] LABS: ALANINE AMINOTRANSFERASE 38 U/L (12-78); ALBUMIN 1.8 G/DL (3.4-5.0); ALBUMIN/GLOBULIN RATIO 0.4 (1.1-1.5); ALKALINE PHOSPHATASE 75 IU/L (46-116); ANION GAP 6 (8-16); ASPARTATE AMINO TRANSFERASE 43 U/L (10-37); BILIRUBIN,TOTAL 0.9 MG/DL (0.1-1.0); BLOOD UREA NITROGEN 101 MG/DL (7-18); BUN/CREATININE RATIO 35.6 (5.4-32.0); CALCIUM 7.7 MG/DL (8.5-10.1); CHLORIDE 103 MMOL/L (99-107); CREATININE 2.84 MG/DL (0.60-1.10); GLUCOSE 103 MG/DL (70-104); MAGNESIUM 1.2 MG/DL (1.5-2.4); PHOSPHORUS 3.3 MG/DL (2.3-4.5); POTASSIUM 3.4 MMOL/L (3.5-5.1); SODIUM 139 MMOL/L (135-145); TOTAL PROTEIN 6.6 G/DL (6.4-8.2); eGFR 27 ML/MIN
[2019-06-25 06:18] LABS: MICROCYTOSIS 1+; PLATELET ESTIMATE NORMAL; TOTAL CELLS COUNTED 100
[2019-06-25 06:19] LABS: POLYCHROMASIA FEW; TARGET CELLS FEW
--- NOTE | 2019-06-25 06:23 | NUR ---
Problems reprioritized. Patient report given, questions answered & plan of care reviewed with IZABEL lucas.
[2019-06-25] MEDS: K, MAG and/or Phos replacement - Verify level? MC SCH (06:34)
--- NOTE | 2019-06-25 07:00 | NUR ---
Patient refusing all medications at this time, stating "I'm not sick, I don't need any of those". Patient also refusing assistance with Q2 turns at this time, but did allow assistance to clean and change soiled linen. Education and support provided.
[2019-06-25] MEDS: CefTRIAXone/D5W-Rocephin 1gm 50 ML IV SCH ×2 (07:11→19:43)
[2019-06-25] MEDS: metoprolol succinate 25mg (24-HOUR) SR. Tablet PO SCH ×2 (07:12→08:00)
[2019-06-25] MEDS: potassium Cl 20 mEq SR tablet PO PRN (07:12)
[2019-06-25] MEDS: pantoprazole 40 MG vial IV SCH ×2 (07:12→08:00)
[2019-06-25] MEDS: normal saline 1000ml 1,000 ML IV SCH ×3 (07:55→23:46)
[2019-06-25] MEDS: heparin, porcine 5000 units/ml vial SQ SCH ×2 (08:00→13:24)
--- NOTE | 2019-06-25 10:30 | NUR ---
MDS rounds at Addendum: 06/25/19 at 1556 by Douglas Malik RN bedside with MD Tim, nursing, discharge specialist, dietary, respiratory, pharmacy, pillowcase turner. aware of current status, lab values, vital signs. made aware of continued non-compliance with meds and that patient is resistive to care much of the time. orders received for BP control.
--- NOTE | 2019-06-25 11:59 | NUR ---
Initial: Pt admit w/ ALOC secondary to meth abuse. AOx2 today refusing all meds/care per RN. PO meals reflects same either 75% or refusals. No BM yet this admit but also refusing meds. BUN down to 101 from 206 on admit. Bebo 12 w/ skin intact. Not HD candidate per MD. Will continue to monitor. Rec: 1. continue renal diet per MD 2. bowel care as needed 3. wt per rx Addendum: 06/25/19 at [address] Amended: Links added.
--- NOTE | 2019-06-25 14:55 | NUR ---
PRESSURE ULCER EDUCATION: DEFINITION: A pressure ulcer is an area of skin that breaks down when you stay in one position too long. The constant pressure against the skin reduces the blood flow to that area and the affected tissue dies. CAUSES: "Being bedridden or in a wheelchair "Fragile skin "Having a chronic condition, such as diabetes or vascular disease "Inability to move certain parts of your body without assistance "Older age "Incontinence of urine or stool SYMPTOMS: "A reddened area that DOES NOT turn white when pressed on - this can be the beginning of a pressure ulcer "A blister, deep sore or a crater - these can be advanced pressure ulcers FIRST AID: "Relieve the pressure on this area "Keep the area clean and dry "Call your primary doctor if you see any of the above symptoms "DO NOT massage the area "DO NOT use a donut shaped or ring shaped pillow- these actually interfere with the blood flow and cause complications PREVENTION: "Check for pressure ulcers everyday "Change position at least every two hours to relieve pressure "Use items that help relieve pressure- pillows, sheepskin, foam padding, and powders. "Keep skin clean and dry "Eat healthy well balanced meals "Exercise daily IF YOU SEE ANY OF THESE SYMPTOMS WHILE IN THE HOSPITAL - TELL YOUR NURSE IMMEDIATELY. IF YOU SEE ANY OF THESE SYMPTOMS WHILE AT HOME OR HAVE ANY QUESTIONS OR CONCERNS ABOUT PRESSURE ULCERS - CALL YOUR PRIMARY DOCTOR IMMEDIATELY. Addendum: 06/25/19 at 1456 by Lala Medina RN Amended: Links added.
--- NOTE | 2019-06-25 15:57 | NUR ---
Patient continues to refuse medications stating "my blood pressure is always high, I don't want those meds". Education provided.
--- NOTE | 2019-06-25 18:46 | NUR ---
Patient in room CICU 2009. I have received report from IZABEL Cole and had the opportunity to ask questions and assume patient care.
[2019-06-25] MEDS: labetalol 20mg/4ml (5mg/ml) syringe IV PRN (19:44)
[2019-06-26] VITALS (20 sets, daily range): BP systolic 143–181; BP diastolic 85–115
--- NOTE | 2019-06-26 00:09 | NUR ---
Problems reprioritized. Patient report given, questions answered & plan of care reviewed with IZABEL MALCOLM.
[2019-06-26] MEDS: hydrALAZINE 20mg/ml inj. IV PRN ×3 (01:12→23:10)
[2019-06-26 04:56] LABS: BASOPHILS % (AUTO) 0.2 % (0-1); EOSINOPHILS # (AUTO) 0.1 X10'3 (0-0.9); EOSINOPHILS % (AUTO) 1.1 % (0-6); HEMATOCRIT 34.2 % (42.0-52.0); HEMOGLOBIN 10.9 g/dl (14.0-17.9); LYMPHOCYTES # (AUTO) 0.7 X10'3 (1.1-4.8); LYMPHOCYTES % (AUTO) 8.3 % (21-51); MEAN CORPUSCULAR HEMOGLOBIN 22.9 PG (27.0-31.0); MEAN CORPUSCULAR HGB CONC 31.9 g/dL (33.0-36.5); MEAN CORPUSCULAR VOLUME 71.9 FL (78-98); MEAN PLATELET VOLUME 7.6 FL (7.4-10.4); MONOCYTES # (AUTO) 1.5 X10'3 (0-0.9); MONOCYTES % (AUTO) 19.5 % (2-12); NEUTROPHILS # (AUTO) 5.6 X10'3 (1.8-7.7); NEUTROPHILS % (AUTO) 70.9 % (42-75); PLATELET COUNT 159 X10'3 (140-440); RED BLOOD COUNT 4.75 X10'6 (4.70-6.10); RED CELL DISTRIBUTION WIDTH 14.9 % (11.5-14.5); WHITE BLOOD COUNT 7.8 X10'3 (4.5-11.0)
[2019-06-26 05:10] LABS: ALANINE AMINOTRANSFERASE 32 U/L (12-78); ALBUMIN 1.8 G/DL (3.4-5.0); ALBUMIN/GLOBULIN RATIO 0.4 (1.1-1.5); ALKALINE PHOSPHATASE 76 IU/L (46-116); ANION GAP 8 (8-16); ASPARTATE AMINO TRANSFERASE 38 U/L (10-37); BILIRUBIN,TOTAL 0.6 MG/DL (0.1-1.0); BLOOD UREA NITROGEN 64 MG/DL (7-18); BUN/CREATININE RATIO 31.4 (5.4-32.0); CALCIUM 7.7 MG/DL (8.5-10.1); CHLORIDE 104 MMOL/L (99-107); CREATININE 2.04 MG/DL (0.60-1.10); GLUCOSE 118 MG/DL (70-104); MAGNESIUM 2.1 MG/DL (1.5-2.4); PHOSPHORUS 2.3 MG/DL (2.3-4.5); SODIUM 139 MMOL/L (135-145); TOTAL CARBON DIOXIDE 27.4 MMOL/L (24-32); TOTAL PROTEIN 6.5 G/DL (6.4-8.2); eGFR 40 ML/MIN
[2019-06-26 05:15] LABS: POTASSIUM 2.8 MMOL/L (3.5-5.1)
[2019-06-26] MEDS: potassium Cl 20 mEq SR tablet PO PRN ×4 (05:29→19:08)
--- NOTE | 2019-06-26 06:00 | NUR ---
patient refused oral potassium replacment, this RN called and notified July. RN was advised by July to have day shift give potassium supplement po per protocol with meals and am medication.
--- NOTE | 2019-06-26 06:38 | NUR ---
Patient in room CICU 2009. I have received report from IZABEL Hernandez and had the opportunity to ask questions and assume patient care.
[2019-06-26 07:10] LABS: ANISOCYTOSIS 1+; MICROCYTOSIS 1+; PLATELET ESTIMATE NORMAL
[2019-06-26 07:11] LABS: TARGET CELLS 1+
[2019-06-26 07:13] LABS: POIKILOCYTOSIS FEW
[2019-06-26] MEDS: metoprolol succinate 25mg (24-HOUR) SR. Tablet PO SCH (07:52)
[2019-06-26] MEDS: pantoprazole 40mg Tablet.DR PO SCH (07:53)
[2019-06-26] MEDS: CefTRIAXone/D5W-Rocephin 1gm 50 ML IV SCH ×2 (07:55→20:31)
[2019-06-26] MEDS: heparin, porcine 5000 units/ml vial SQ SCH ×4 (08:00→23:15)
[2019-06-26] MEDS: K, MAG and/or Phos replacement - Verify level? MC SCH (08:00)
[2019-06-26] MEDS ORDERED: loperamide 2mg capsule PO ONE (11:00)
[2019-06-26] MEDS: labetalol 20mg/4ml (5mg/ml) syringe IV PRN (11:23)
[2019-06-26] MEDS: normal saline 1000ml 1,000 ML IV SCH ×2 (14:32→19:07)
--- NOTE | 2019-06-26 17:00 | NUR ---
REPORT RECEIVED FROM IZABEL SNOWDEN IN CICU
--- NOTE | 2019-06-26 17:15 | NUR ---
Gave report to IZABEL Ivy. Transferred to surgical via wheelchair with all belongings. Alert, oriented, and stable for transfer.
--- NOTE | 2019-06-26 17:20 | NUR ---
PATIENT CAME TO UNIT FROM [facility], PATIENT ORIENTATED TO , ALL BELONGINGS PUT IN CLOSET
--- NOTE | 2019-06-26 18:30 | NUR ---
Problems reprioritized. Patient report given, questions answered & plan of care reviewed with IZABEL WALLIS.
--- NOTE | 2019-06-26 19:45 | NUR ---
Patient in room MEETA 347. I have received report from Eboni PAIZ and had the opportunity to ask questions and assume patient care.
--- NOTE | 2019-06-26 19:46 | NUR ---
Patient in room MEETA 347. I have received report from Eleonora PAIZ and had the opportunity to ask questions and assume patient care.
--- NOTE | 2019-06-26 19:46 | NUR ---
Problems reprioritized. Patient report given, questions answered & plan of care reviewed with Tiffany PAIZ.
[2019-06-26] MEDS ORDERED: hydrALAZINE 20mg/ml inj. IV ONE (20:15)
--- NOTE | 2019-06-26 20:17 | NUR ---
Called MD for elevated BP now 183/109, 82. New order for 1x IVP hydralzine now 10mg.
[2019-06-26] MEDS: lactobacillus rhamnosus 10,000 MMU CELLS/CAPSULE PO SCH (20:29)
[2019-06-27] VITALS: BP 161/83
[2019-06-27 00:20] VITALS: BP 163/89
[2019-06-27 04:58] LABS: BASOPHILS % (AUTO) 0.3 % (0-1); EOSINOPHILS # (AUTO) 0.1 X10'3 (0-0.9); EOSINOPHILS % (AUTO) 1.2 % (0-6); HEMATOCRIT 34.2 % (42.0-52.0); LYMPHOCYTES # (AUTO) 0.9 X10'3 (1.1-4.8); LYMPHOCYTES % (AUTO) 12.1 % (21-51); MEAN CORPUSCULAR HEMOGLOBIN 22.9 PG (27.0-31.0); MEAN CORPUSCULAR HGB CONC 32.1 g/dL (33.0-36.5); MEAN CORPUSCULAR VOLUME 71.3 FL (78-98); MEAN PLATELET VOLUME 8.2 FL (7.4-10.4); MONOCYTES % (AUTO) 13.3 % (2-12); NEUTROPHILS # (AUTO) 5.4 X10'3 (1.8-7.7); NEUTROPHILS % (AUTO) 73.1 % (42-75); PLATELET COUNT 138 X10'3 (140-440); RED CELL DISTRIBUTION WIDTH 15.2 % (11.5-14.5); WHITE BLOOD COUNT 7.4 X10'3 (4.5-11.0)
[2019-06-27 05:12] LABS: ALANINE AMINOTRANSFERASE 30 U/L (12-78); ALBUMIN/GLOBULIN RATIO 0.4 (1.1-1.5); ALKALINE PHOSPHATASE 76 IU/L (46-116); ANION GAP 7 (8-16); ASPARTATE AMINO TRANSFERASE 39 U/L (10-37); BLOOD UREA NITROGEN 42 MG/DL (7-18); BUN/CREATININE RATIO 23.7 (5.4-32.0); CALCIUM 7.8 MG/DL (8.5-10.1); CHLORIDE 107 MMOL/L (99-107); CREATININE 1.77 MG/DL (0.60-1.10); GLUCOSE 95 MG/DL (70-104); MAGNESIUM 1.4 MG/DL (1.5-2.4); PHOSPHORUS 1.8 MG/DL (2.3-4.5); POTASSIUM 3.5 MMOL/L (3.5-5.1); SODIUM 139 MMOL/L (135-145); TOTAL CARBON DIOXIDE 24.7 MMOL/L (24-32); TOTAL PROTEIN 6.6 G/DL (6.4-8.2); eGFR 47 ML/MIN
[2019-06-27] MEDS: normal saline 1000ml 1,000 ML IV SCH ×3 (05:35→21:27)
--- NOTE | 2019-06-27 06:40 | NUR ---
Problems reprioritized. Patient report given, questions answered & plan of care reviewed with Yara PAIZ.
--- NOTE | 2019-06-27 06:47 | NUR ---
Patient in room MEETA 347. I have received report from IZABEL Allen and had the opportunity to ask questions and assume patient care.
[2019-06-27 07:00] VITALS: BP 169/108
[2019-06-27] MEDS: K, MAG and/or Phos replacement - Verify level? MC SCH (07:38)
[2019-06-27] MEDS: Neutra Phos packet PO PRN ×3 (07:48→21:29)
[2019-06-27] MEDS: pantoprazole 40mg Tablet.DR PO SCH (07:49)
[2019-06-27] MEDS: CefTRIAXone/D5W-Rocephin 1gm 50 ML IV SCH (07:49)
[2019-06-27] MEDS: lactobacillus rhamnosus 10,000 MMU CELLS/CAPSULE PO SCH ×2 (07:49→21:29)
[2019-06-27] MEDS: metoprolol succinate 25mg (24-HOUR) SR. Tablet PO SCH (07:49)
[2019-06-27] MEDS: heparin, porcine 5000 units/ml vial SQ SCH ×2 (08:00→15:46)
--- NOTE | 2019-06-27 08:15 | NUR ---
Patient refused to take the Heparin injection this morning.
--- NOTE | 2019-06-27 09:09 | NUR ---
Patient had a 5 beat run of Vtach per tele monitor, BP 163/99 HR 85, patient is sleeping at this time and in no apparent distress. Dr. Tim notified, no new orders received at this time. Will continue to monitor patient.
[2019-06-27] MEDS: hydrALAZINE 20mg/ml inj. IV PRN (09:58)
[2019-06-27] MEDS: magnesium Cl slow-release 64mg tablet PO PRN ×2 (10:47→21:29)
[2019-06-27] MEDS: NIFEdipine XL 30mg tablet PO SCH (10:47)
[2019-06-27 11:00] VITALS: BP 148/91
[2019-06-27 14:50] VITALS: BP 138/81
--- NOTE | 2019-06-27 18:23 | NUR ---
Problems reprioritized. Patient report given, questions answered & plan of care reviewed with Marilyn Sanders RN.
[2019-06-27 20:00] VITALS: BP 131/77
[2019-06-28] VITALS: BP 136/70
[2019-06-28 05:17] LABS: BASOPHILS % (AUTO) 0.2 % (0-1); EOSINOPHILS # (AUTO) 0.1 X10'3 (0-0.9); EOSINOPHILS % (AUTO) 1.4 % (0-6); HEMOGLOBIN 9.5 g/dl (14.0-17.9); LYMPHOCYTES # (AUTO) 0.9 X10'3 (1.1-4.8); LYMPHOCYTES % (AUTO) 11.3 % (21-51); MEAN CORPUSCULAR HEMOGLOBIN 22.8 PG (27.0-31.0); MEAN CORPUSCULAR HGB CONC 31.7 g/dL (33.0-36.5); MEAN CORPUSCULAR VOLUME 72.1 FL (78-98); MEAN PLATELET VOLUME 8.2 FL (7.4-10.4); MONOCYTES # (AUTO) 0.8 X10'3 (0-0.9); MONOCYTES % (AUTO) 9.7 % (2-12); NEUTROPHILS # (AUTO) 6.1 X10'3 (1.8-7.7); NEUTROPHILS % (AUTO) 77.4 % (42-75); PLATELET COUNT 118 X10'3 (140-440); RED BLOOD COUNT 4.16 X10'6 (4.70-6.10); RED CELL DISTRIBUTION WIDTH 15.4 % (11.5-14.5); WHITE BLOOD COUNT 7.8 X10'3 (4.5-11.0)
[2019-06-28 05:27] LABS: ALANINE AMINOTRANSFERASE 32 U/L (12-78); ALBUMIN 1.9 G/DL (3.4-5.0); ALBUMIN/GLOBULIN RATIO 0.5 (1.1-1.5); ALKALINE PHOSPHATASE 76 IU/L (46-116); ANION GAP 5 (8-16); ASPARTATE AMINO TRANSFERASE 38 U/L (10-37); BILIRUBIN,TOTAL 0.7 MG/DL (0.1-1.0); BLOOD UREA NITROGEN 33 MG/DL (7-18); BUN/CREATININE RATIO 20.2 (5.4-32.0); CALCIUM 7.4 MG/DL (8.5-10.1); CHLORIDE 109 MMOL/L (99-107); CREATININE 1.63 MG/DL (0.60-1.10); GLUCOSE 98 MG/DL (70-104); MAGNESIUM 1.2 MG/DL (1.5-2.4); PHOSPHORUS 1.7 MG/DL (2.3-4.5); SODIUM 140 MMOL/L (135-145); TOTAL CARBON DIOXIDE 25.7 MMOL/L (24-32); TOTAL PROTEIN 6.1 G/DL (6.4-8.2); eGFR 51 ML/MIN
[2019-06-28] MEDS: normal saline 1000ml 1,000 ML IV SCH ×2 (05:58→15:28)
--- NOTE | 2019-06-28 06:00 | NUR ---
PATIENT REFUSED TO TAKE K-DUR 40MEQ SAID "I DON'T WANT TO TAKE THOSE HUGE PILLS" WILL REPORT TO AM NURSE.
--- NOTE | 2019-06-28 06:25 | NUR ---
Problems reprioritized. Patient report given, questions answered & plan of care reviewed with LARRY PAIZ. REPORTED ABOUT PATIENT REFUSAL OF K-DUR.
--- NOTE | 2019-06-28 06:34 | NUR ---
Patient in room MEETA 347. I have received report from Marilyn Sanders RN and had the opportunity to ask questions and assume patient care.
[2019-06-28 07:00] VITALS: BP 157/103
[2019-06-28] MEDS: CefTRIAXone/D5W-Rocephin 1gm 50 ML IV SCH ×2 (07:10→21:15)
[2019-06-28] MEDS: metoprolol succinate 25mg (24-HOUR) SR. Tablet PO SCH (07:12)
[2019-06-28] MEDS: NIFEdipine XL 30mg tablet PO SCH (07:12)
[2019-06-28] MEDS: potassium Cl 20 mEq SR tablet PO PRN ×3 (07:13→21:16)
[2019-06-28] MEDS: pantoprazole 40mg Tablet.DR PO SCH (07:29)
[2019-06-28] MEDS: K, MAG and/or Phos replacement - Verify level? MC SCH (07:29)
[2019-06-28] MEDS: heparin, porcine 5000 units/ml vial SQ SCH ×2 (07:30)
[2019-06-28] MEDS: lactobacillus rhamnosus 10,000 MMU CELLS/CAPSULE PO SCH ×2 (07:30→21:15)
--- NOTE | 2019-06-28 07:32 | NUR ---
Patient is refusing most mediations this morning. He did not want to take his BP meds however, after education about how BP effects the kidneys he stated that he would take them. In addition, his K, mg, and phos are all low. He refused to take the phos stating that its making him sick. The K and Mg replacements he agreed to take "but only this morning, I won't take anymore pills today so don't ask". Will address this with the MD to see if we can maybe replace this IV instead.
[2019-06-28] MEDS: magnesium Cl slow-release 64mg tablet PO PRN ×2 (09:30→21:16)
[2019-06-28 11:00] VITALS: BP 157/111
[2019-06-28] MEDS: Neutra Phos packet PO PRN ×2 (14:47→21:16)
[2019-06-28 18:00] VITALS: BP 155/94
--- NOTE | 2019-06-28 18:39 | NUR ---
Problems reprioritized. Patient report given, questions answered & plan of care reviewed with IZABEL Gan.
[2019-06-29] VITALS: BP 137/98
[2019-06-29 05:23] LABS: BASOPHILS % (AUTO) 0.5 % (0-1); EOSINOPHILS # (AUTO) 0.1 X10'3 (0-0.9); EOSINOPHILS % (AUTO) 1.6 % (0-6); HEMATOCRIT 30.4 % (42.0-52.0); HEMOGLOBIN 9.7 g/dl (14.0-17.9); LYMPHOCYTES # (AUTO) 0.7 X10'3 (1.1-4.8); LYMPHOCYTES % (AUTO) 8.5 % (21-51); MEAN CORPUSCULAR HGB CONC 31.8 g/dL (33.0-36.5); MEAN CORPUSCULAR VOLUME 72.3 FL (78-98); MEAN PLATELET VOLUME 8.9 FL (7.4-10.4); MONOCYTES # (AUTO) 0.8 X10'3 (0-0.9); MONOCYTES % (AUTO) 9.7 % (2-12); NEUTROPHILS # (AUTO) 6.8 X10'3 (1.8-7.7); NEUTROPHILS % (AUTO) 79.7 % (42-75); PLATELET COUNT 114 X10'3 (140-440); RED CELL DISTRIBUTION WIDTH 15.4 % (11.5-14.5); WHITE BLOOD COUNT 8.5 X10'3 (4.5-11.0)
[2019-06-29 05:36] LABS: ALANINE AMINOTRANSFERASE 33 U/L (12-78); ALBUMIN/GLOBULIN RATIO 0.4 (1.1-1.5); ALKALINE PHOSPHATASE 81 IU/L (46-116); ANION GAP 7 (8-16); ASPARTATE AMINO TRANSFERASE 44 U/L (10-37); BILIRUBIN,TOTAL 0.7 MG/DL (0.1-1.0); BLOOD UREA NITROGEN 23 MG/DL (7-18); BUN/CREATININE RATIO 16.8 (5.4-32.0); CALCIUM 7.2 MG/DL (8.5-10.1); CHLORIDE 106 MMOL/L (99-107); CREATININE 1.37 MG/DL (0.60-1.10); GLUCOSE 86 MG/DL (70-104); PHOSPHORUS 1.6 MG/DL (2.3-4.5); POTASSIUM 3.8 MMOL/L (3.5-5.1); SODIUM 136 MMOL/L (135-145); TOTAL CARBON DIOXIDE 23.4 MMOL/L (24-32); TOTAL PROTEIN 6.5 G/DL (6.4-8.2); eGFR 63 ML/MIN
--- NOTE | 2019-06-29 06:38 | NUR ---
Report given to IZABEL Trivedi
--- NOTE | 2019-06-29 06:40 | NUR ---
Patient in room MEETA 347. I have received report from Malik PAIZ and had the opportunity to ask questions and assume patient care.
[2019-06-29] MEDS ORDERED: magnesium 4gm in 100ml NS 100 ML IV PRN (07:50)
[2019-06-29] MEDS: CefTRIAXone/D5W-Rocephin 1gm 50 ML IV SCH ×2 (07:54→20:04)
[2019-06-29 08:00] VITALS: BP 170/104
[2019-06-29] MEDS: K, MAG and/or Phos replacement - Verify level? MC SCH (08:00)
[2019-06-29] MEDS: pantoprazole 40mg Tablet.DR PO SCH (08:04)
[2019-06-29] MEDS: lactobacillus rhamnosus 10,000 MMU CELLS/CAPSULE PO SCH ×2 (08:04→20:05)
[2019-06-29] MEDS: NIFEdipine XL 30mg tablet PO SCH (08:05)
[2019-06-29] MEDS: metoprolol succinate 25mg (24-HOUR) SR. Tablet PO SCH (08:05)
[2019-06-29] MEDS: sodium phosphate inj. 15 MMOL in dextrose 5%-water 150 ML IV PRN (08:51)
[2019-06-29 09:45] VITALS: BP 143/89
[2019-06-29] MEDS: acetaminophen 325mg tablet PO PRN (10:27)
[2019-06-29 12:12] LABS: CLARITY,URINE CLEAR (Clear); COLOR,URINE STRAW (Yellow); GLUCOSE, URINE 500 mg/dl (Neg); KETONES,URINE NEGATIVE (Neg); LEUKOCYTE ESTERASE ,URINE NEGATIVE (Neg); NITRITES, URINE NEGATIVE (Neg); OCCULT BLOOD,URINE LARGE (Neg); PROTEIN,URINE 30 mg/dl (Neg); UROBILINOGEN,URINE 0.2 E.U/dL (0.2-1.0)
[2019-06-29 12:20] LABS: UA COLLECTION TYPE NON-SPECIFIED
[2019-06-29 12:34] LABS: COARSE GRANULAR CAST 0-3 /LPF (NEGATIVE); MUCUS STRANDS FEW /LPF (Neg); SQUAMOUS EPITHELIAL CELL,UR FEW /LPF (FEW)
[2019-06-29 12:36] LABS: RBC,URINE 20-50 /HPF (0-2)
[2019-06-29 12:37] LABS: BACTERIA,URINE FEW /HPF (Neg); WBC,URINE 0-4 /HPF (0-4)
[2019-06-29 12:38] LABS: TRANSITIONAL EPI CELLS,URINE FEW /HPF
[2019-06-29] MEDS: normal saline 1000ml 1,000 ML IV SCH ×2 (13:13→21:55)
--- NOTE | 2019-06-29 14:40 | NUR ---
Pt Mg+ 1.0 iv replacement. PO protocol not effective.
[2019-06-29] MEDS: vancomycin 250MG/10ML UD oral solution 10ML BOTTLE PO SCH ×2 (16:09→20:05)
--- NOTE | 2019-06-29 18:39 | NUR ---
Problems reprioritized. Patient report given, questions answered & plan of care reviewed with Malik PAIZ.
[2019-06-29 18:45] VITALS: BP 136/88
[2019-06-29] MEDS ORDERED: magnesium 2GM in 50ml NS 50 ML IV PRN (18:45)
[2019-06-30] VITALS: BP 133/90
[2019-06-30] MEDS: sodium phosphate inj. 15 MMOL in dextrose 5%-water 150 ML IV PRN (00:56)
[2019-06-30] MEDS: vancomycin 250MG/10ML UD oral solution 10ML BOTTLE PO SCH ×4 (00:56→20:12)
[2019-06-30 05:35] LABS: BASOPHILS # (AUTO) 0.1 X10'3 (0-0.2); EOSINOPHILS # (AUTO) 0.1 X10'3 (0-0.9); HEMATOCRIT 30.4 % (42.0-52.0); HEMOGLOBIN 9.6 g/dl (14.0-17.9); MEAN CORPUSCULAR HGB CONC 31.6 g/dL (33.0-36.5); MEAN CORPUSCULAR VOLUME 72.6 FL (78-98); MEAN PLATELET VOLUME 9.4 FL (7.4-10.4); MONOCYTES # (AUTO) 0.7 X10'3 (0-0.9); MONOCYTES % (AUTO) 9.8 % (2-12); NEUTROPHILS # (AUTO) 5.6 X10'3 (1.8-7.7); NEUTROPHILS % (AUTO) 74.2 % (42-75); PLATELET COUNT 130 X10'3 (140-440); RED BLOOD COUNT 4.18 X10'6 (4.70-6.10); RED CELL DISTRIBUTION WIDTH 15.5 % (11.5-14.5); WHITE BLOOD COUNT 7.5 X10'3 (4.5-11.0)
[2019-06-30 05:56] LABS: ALANINE AMINOTRANSFERASE 33 U/L (12-78); ALBUMIN 1.9 G/DL (3.4-5.0); ALBUMIN/GLOBULIN RATIO 0.4 (1.1-1.5); ALKALINE PHOSPHATASE 96 IU/L (46-116); ANION GAP 6 (8-16); ASPARTATE AMINO TRANSFERASE 41 U/L (10-37); BILIRUBIN,TOTAL 0.3 MG/DL (0.1-1.0); BLOOD UREA NITROGEN 21 MG/DL (7-18); BUN/CREATININE RATIO 15.3 (5.4-32.0); CALCIUM 7.3 MG/DL (8.5-10.1); CHLORIDE 107 MMOL/L (99-107); CREATININE 1.37 MG/DL (0.60-1.10); GLUCOSE 114 MG/DL (70-104); MAGNESIUM 1.9 MG/DL (1.5-2.4); PHOSPHORUS 2.6 MG/DL (2.3-4.5); POTASSIUM 3.2 MMOL/L (3.5-5.1); SODIUM 137 MMOL/L (135-145); TOTAL PROTEIN 6.4 G/DL (6.4-8.2); eGFR 63 ML/MIN
--- NOTE | 2019-06-30 06:41 | NUR ---
Report given to IZABEL Crews
--- NOTE | 2019-06-30 06:48 | NUR ---
Patient in room MEETA 347. I have received report from IZABEL Gan and had the opportunity to ask questions and assume patient care.
[2019-06-30 07:00] VITALS: BP 152/102
[2019-06-30] MEDS: K, MAG and/or Phos replacement - Verify level? MC SCH (08:00)
[2019-06-30] MEDS: CefTRIAXone/D5W-Rocephin 1gm 50 ML IV SCH (08:00)
[2019-06-30] MEDS ORDERED: CefTRIAXone/D5W-Rocephin 1gm 50 ML IV ONE (09:25)
[2019-06-30] MEDS: normal saline 1000ml 1,000 ML IV SCH ×2 (09:38→17:55)
[2019-06-30] MEDS: NIFEdipine XL 30mg tablet PO SCH (09:39)
[2019-06-30] MEDS: pantoprazole 40mg Tablet.DR PO SCH (09:39)
[2019-06-30] MEDS: metoprolol succinate 25mg (24-HOUR) SR. Tablet PO SCH (09:39)
[2019-06-30] MEDS: potassium Cl 20 mEq SR tablet PO PRN ×3 (09:40→20:12)
[2019-06-30] MEDS: lactobacillus rhamnosus 10,000 MMU CELLS/CAPSULE PO SCH ×2 (09:40→20:12)
[2019-06-30 11:00] VITALS: BP 162/92
--- NOTE | 2019-06-30 11:45 | NUR ---
Reassessment: Pt now A/O x 4 per physical assessment. Pt continues on renal diet documented with average 75-100% PO intake meeting nutrient needs. HOANG improving per MD notes. LBM 06/29. Pt on abx for C.diff per MD notes. No nutrition intervention warranted at this time. Will continue to follow. Rec: 1. continue renal diet per MD 2. bowel care as needed 3. wt per rx Addendum: 06/30/19 at [address] Amended: Links added.
[2019-06-30 18:00] VITALS: BP 145/94
--- NOTE | 2019-06-30 18:25 | NUR ---
Problems reprioritized. Patient report given, questions answered & plan of care reviewed with IZABEL Gan.
[2019-06-30] MEDS: Neutra Phos packet PO PRN (20:12)
[2019-07-01] VITALS: BP 147/93
[2019-07-01] MEDS: vancomycin 250MG/10ML UD oral solution 10ML BOTTLE PO SCH ×4 (01:06→20:56)
[2019-07-01] MEDS: normal saline 1000ml 1,000 ML IV SCH ×2 (03:55→13:55)
[2019-07-01 05:25] LABS: ANION GAP 5 (8-16); CHLORIDE 111 MMOL/L (99-107); GLUCOSE 85 MG/DL (70-104); POTASSIUM 3.9 MMOL/L (3.5-5.1); SODIUM 140 MMOL/L (135-145); TOTAL CARBON DIOXIDE 23.8 MMOL/L (24-32)
[2019-07-01 05:26] LABS: ALANINE AMINOTRANSFERASE 31 U/L (12-78); ALBUMIN/GLOBULIN RATIO 0.5 (1.1-1.5); ALKALINE PHOSPHATASE 127 IU/L (46-116); ASPARTATE AMINO TRANSFERASE 31 U/L (10-37); BILIRUBIN,TOTAL 0.3 MG/DL (0.1-1.0); BLOOD UREA NITROGEN 21 MG/DL (7-18); BUN/CREATININE RATIO 15.4 (5.4-32.0); CALCIUM 7.4 MG/DL (8.5-10.1); CREATININE 1.36 MG/DL (0.60-1.10); MAGNESIUM 1.4 MG/DL (1.5-2.4); PHOSPHORUS 2.1 MG/DL (2.3-4.5); TOTAL PROTEIN 6.4 G/DL (6.4-8.2); eGFR 63 ML/MIN
[2019-07-01 05:49] LABS: BASOPHILS # (AUTO) 0.1 X10'3 (0-0.2); EOSINOPHILS # (AUTO) 0.1 X10'3 (0-0.9); EOSINOPHILS % (AUTO) 1.3 % (0-6); HEMATOCRIT 29.8 % (42.0-52.0); HEMOGLOBIN 9.3 g/dl (14.0-17.9); LYMPHOCYTES # (AUTO) 1.5 X10'3 (1.1-4.8); LYMPHOCYTES % (AUTO) 22.9 % (21-51); MEAN CORPUSCULAR HEMOGLOBIN 23.1 PG (27.0-31.0); MEAN CORPUSCULAR HGB CONC 31.3 g/dL (33.0-36.5); MEAN CORPUSCULAR VOLUME 73.8 FL (78-98); MEAN PLATELET VOLUME 9.8 FL (7.4-10.4); MONOCYTES # (AUTO) 0.8 X10'3 (0-0.9); MONOCYTES % (AUTO) 12.6 % (2-12); NEUTROPHILS # (AUTO) 4.2 X10'3 (1.8-7.7); NEUTROPHILS % (AUTO) 62.2 % (42-75); PLATELET COUNT 175 X10'3 (140-440); RED BLOOD COUNT 4.04 X10'6 (4.70-6.10); RED CELL DISTRIBUTION WIDTH 16.1 % (11.5-14.5); WHITE BLOOD COUNT 6.7 X10'3 (4.5-11.0)
--- NOTE | 2019-07-01 06:32 | NUR ---
REPORT GIVEN TO IZABEL MONTES
--- NOTE | 2019-07-01 06:44 | NUR ---
Patient in room MEETA 347. I have received report from Malik PAIZ and had the opportunity to ask questions and assume patient care.
[2019-07-01 07:00] VITALS: BP 169/107
[2019-07-01] MEDS: K, MAG and/or Phos replacement - Verify level? MC SCH (08:00)
--- NOTE | 2019-07-01 08:00 | NUR ---
patient seen by Natasha Hauser informed BP 169/107 . Morning meds given will recheck
[2019-07-01] MEDS: NIFEdipine XL 30mg tablet PO SCH (08:26)
[2019-07-01] MEDS: pantoprazole 40mg Tablet.DR PO SCH (08:27)
[2019-07-01] MEDS: lactobacillus rhamnosus 10,000 MMU CELLS/CAPSULE PO SCH ×2 (08:27→20:56)
[2019-07-01] MEDS: metoprolol succinate 25mg (24-HOUR) SR. Tablet PO SCH (08:27)
[2019-07-01] MEDS: magnesium Cl slow-release 64mg tablet PO PRN ×3 (08:27→21:14)
[2019-07-01 11:00] VITALS: BP 169/107
[2019-07-01] MEDS: hydrALAZINE 20mg/ml inj. IV PRN (11:02)
--- NOTE | 2019-07-01 11:17 | NUR ---
B/P rechecked 183/108 given 10mg hydralazine. Seen by Dr Tim, to stay today.
--- NOTE | 2019-07-01 12:44 | NUR ---
B/P 150/95 will continue to monitor
--- NOTE | 2019-07-01 16:05 | NUR ---
Call from tele HR in 130. Pattie becerra informed, orders given, see emar.
[2019-07-01] MEDS: hyDRALAzine 10mg tablet PO SCH ×2 (16:44→23:29)
--- NOTE | 2019-07-01 18:45 | NUR ---
Problems reprioritized. Patient report given, questions answered & plan of care reviewed with Pat RN.
[2019-07-01 19:30] VITALS: BP 170/95
[2019-07-01] MEDS: Neutra Phos packet PO PRN ×2 (20:56→21:14)
[2019-07-01] MEDS: acetaminophen 325mg tablet PO PRN ×2 (21:06→21:13)
[2019-07-01 23:15] VITALS: BP 162/100
[2019-07-02] MEDS: vancomycin 250MG/10ML UD oral solution 10ML BOTTLE PO SCH ×4 (02:24→19:44)
[2019-07-02 05:15] LABS: BASOPHILS % (AUTO) 0.6 % (0-1); EOSINOPHILS # (AUTO) 0.1 X10'3 (0-0.9); EOSINOPHILS % (AUTO) 1.6 % (0-6); HEMATOCRIT 28.8 % (42.0-52.0); LYMPHOCYTES # (AUTO) 2.4 X10'3 (1.1-4.8); LYMPHOCYTES % (AUTO) 34.5 % (21-51); MEAN CORPUSCULAR HEMOGLOBIN 23.2 PG (27.0-31.0); MEAN CORPUSCULAR HGB CONC 31.4 g/dL (33.0-36.5); MEAN CORPUSCULAR VOLUME 73.7 FL (78-98); MEAN PLATELET VOLUME 9.1 FL (7.4-10.4); MONOCYTES % (AUTO) 14.8 % (2-12); NEUTROPHILS # (AUTO) 3.4 X10'3 (1.8-7.7); NEUTROPHILS % (AUTO) 48.5 % (42-75); PLATELET COUNT 199 X10'3 (140-440); RED CELL DISTRIBUTION WIDTH 15.9 % (11.5-14.5); WHITE BLOOD COUNT 7.1 X10'3 (4.5-11.0)
[2019-07-02 05:19] LABS: ALANINE AMINOTRANSFERASE 25 U/L (12-78); ALBUMIN 1.9 G/DL (3.4-5.0); ALBUMIN/GLOBULIN RATIO 0.4 (1.1-1.5); ALKALINE PHOSPHATASE 177 IU/L (46-116); ANION GAP 6 (8-16); ASPARTATE AMINO TRANSFERASE 29 U/L (10-37); BILIRUBIN,TOTAL 0.3 MG/DL (0.1-1.0); BLOOD UREA NITROGEN 22 MG/DL (7-18); BUN/CREATININE RATIO 16.7 (5.4-32.0); CALCIUM 7.6 MG/DL (8.5-10.1); CHLORIDE 112 MMOL/L (99-107); CREATININE 1.32 MG/DL (0.60-1.10); GLUCOSE 97 MG/DL (70-104); MAGNESIUM 1.3 MG/DL (1.5-2.4); PHOSPHORUS 2.2 MG/DL (2.3-4.5); POTASSIUM 3.8 MMOL/L (3.5-5.1); SODIUM 140 MMOL/L (135-145); TOTAL PROTEIN 6.4 G/DL (6.4-8.2); eGFR 66 ML/MIN
[2019-07-02 07:53] VITALS: BP 158/109
[2019-07-02] MEDS: K, MAG and/or Phos replacement - Verify level? MC SCH (08:00)
[2019-07-02] MEDS ORDERED: NIFE30TA95 PO (08:21)
[2019-07-02] MEDS ORDERED: VANC250C12 PO (08:21)
[2019-07-02] MEDS: hyDRALAzine 10mg tablet PO SCH ×2 (08:51→16:42)
[2019-07-02] MEDS: NIFEdipine XL 30mg tablet PO SCH (08:51)
[2019-07-02] MEDS: pantoprazole 40mg Tablet.DR PO SCH (08:51)
[2019-07-02] MEDS: lactobacillus rhamnosus 10,000 MMU CELLS/CAPSULE PO SCH ×2 (08:51→19:43)
[2019-07-02] MEDS: metoprolol succinate 25mg (24-HOUR) SR. Tablet PO SCH (08:51)
[2019-07-02 11:00] VITALS: BP 108/76
--- NOTE | 2019-07-02 18:15 | NUR ---
Patient in room MEETA 347. I have received report from IZABEL Giraldo and had the opportunity to ask questions and assume patient care.
[2019-07-02 20:00] VITALS: BP_SYST 126; BP_SYST 149; BP_DIAS 76; BP_DIAS 91
[2019-07-02] MEDS: magnesium Cl slow-release 64mg tablet PO PRN (22:42)
[2019-07-02] MEDS: Neutra Phos packet PO PRN (22:42)
[2019-07-02 23:45] VITALS: BP 138/65
[2019-07-03] MEDS: hyDRALAzine 10mg tablet PO SCH ×2 (00:24→07:44)
[2019-07-03] MEDS: vancomycin 250MG/10ML UD oral solution 10ML BOTTLE PO SCH ×2 (01:57→07:52)
[2019-07-03 05:04] LABS: BASOPHILS # (AUTO) 0.1 X10'3 (0-0.2); EOSINOPHILS # (AUTO) 0.1 X10'3 (0-0.9); LYMPHOCYTES # (AUTO) 2.7 X10'3 (1.1-4.8); MEAN PLATELET VOLUME 9.1 FL (7.4-10.4); MONOCYTES # (AUTO) 0.9 X10'3 (0-0.9)
[2019-07-03 05:06] LABS: BASOPHILS % (AUTO) 1.3 % (0-1); EOSINOPHILS % (AUTO) 1.5 % (0-6); HEMATOCRIT 29.7 % (42.0-52.0); HEMOGLOBIN 9.4 g/dl (14.0-17.9); LYMPHOCYTES % (AUTO) 40.8 % (21-51); MEAN CORPUSCULAR HEMOGLOBIN 23.3 PG (27.0-31.0); MEAN CORPUSCULAR HGB CONC 31.7 g/dL (33.0-36.5); MEAN CORPUSCULAR VOLUME 73.6 FL (78-98); MONOCYTES % (AUTO) 13.7 % (2-12); NEUTROPHILS # (AUTO) 2.8 X10'3 (1.8-7.7); NEUTROPHILS % (AUTO) 42.7 % (42-75); PLATELET COUNT 265 X10'3 (140-440); RED BLOOD COUNT 4.03 X10'6 (4.70-6.10); RED CELL DISTRIBUTION WIDTH 16.3 % (11.5-14.5); WHITE BLOOD COUNT 6.6 X10'3 (4.5-11.0)
[2019-07-03 05:19] LABS: GLUCOSE 118 MG/DL (70-104); SODIUM 140 MMOL/L (135-145)
[2019-07-03 05:20] LABS: ALANINE AMINOTRANSFERASE 31 U/L (12-78); ALBUMIN/GLOBULIN RATIO 0.4 (1.1-1.5); ALKALINE PHOSPHATASE 178 IU/L (46-116); ANION GAP 7 (8-16); ASPARTATE AMINO TRANSFERASE 32 U/L (10-37); BILIRUBIN,TOTAL 0.3 MG/DL (0.1-1.0); BLOOD UREA NITROGEN 26 MG/DL (7-18); BUN/CREATININE RATIO 16.9 (5.4-32.0); CALCIUM 7.8 MG/DL (8.5-10.1); CHLORIDE 110 MMOL/L (99-107); CREATININE 1.54 MG/DL (0.60-1.10); MAGNESIUM 1.4 MG/DL (1.5-2.4); PHOSPHORUS 2.9 MG/DL (2.3-4.5); POTASSIUM 4.4 MMOL/L (3.5-5.1); TOTAL CARBON DIOXIDE 22.6 MMOL/L (24-32); TOTAL PROTEIN 6.9 G/DL (6.4-8.2); eGFR 55 ML/MIN
[2019-07-03 06:43] LABS: ANISOCYTOSIS 1+; MICROCYTOSIS 1+; PLATELET ESTIMATE NORMAL; TOTAL CELLS COUNTED 100
--- NOTE | 2019-07-03 06:43 | NUR ---
Problems reprioritized. Patient report given, questions answered & plan of care reviewed with mayco PAIZ.
[2019-07-03 06:45] LABS: HYPOCHROMASIA 1+; SCHISTOCYTES FEW
--- NOTE | 2019-07-03 06:49 | NUR ---
Patient in room MEETA 347. I have received report from LeonoraRN & Shanita RN and had the opportunity to ask questions and assume patient care.
[2019-07-03 07:00] VITALS: BP 146/100
[2019-07-03] MEDS: pantoprazole 40mg Tablet.DR PO SCH (07:43)
[2019-07-03] MEDS: metoprolol succinate 25mg (24-HOUR) SR. Tablet PO SCH (07:44)
[2019-07-03] MEDS: lactobacillus rhamnosus 10,000 MMU CELLS/CAPSULE PO SCH (07:44)
[2019-07-03] MEDS: NIFEdipine XL 30mg tablet PO SCH (07:44)
[2019-07-03] MEDS: acetaminophen 325mg tablet PO PRN (07:45)
[2019-07-03] MEDS: K, MAG and/or Phos replacement - Verify level? MC SCH (08:00)
--- NOTE | 2019-07-03 11:49 | NUR ---
PATIENT STABLE AND APPROPRIATE FOR DISCHARGE, EDUCATION GIVEN, MEDS CALLED IN TO [facility] [address], ALL BELONGINGS SENT WITH PATIENT, IV TAKEN OUT, PATIENT TAKEN TO LOBBY TO AN AWAITING TAXI TO TAKE PATIENT TO PHARMACY AND THEN TO [facility], [facility] AND TAXI PAID FOR BY [facility]
== END 2019-07-03 11:50 | disposition home or self-care (01) | DRG 682 ==
LOC: ER 13:42 → EDBD 18:02 → ED HOLD 18:02 → CICU 2S 19:20 → SUR 3N 06-26 17:14
DX: N17.9 Acute kidney failure, unspecified (principal); G93.41 Metabolic encephalopathy; E87.2 Acidosis; N39.0 Urinary tract infection, site not specified; F11.288 Opioid dependence with other opioid-induced disorder; E87.5 Hyperkalemia; D72.829 Elevated white blood cell count, unspecified; Z22.321 Carrier or suspected carrier of Methicillin susceptible Staphylococcus aureus; Z59.0 Homelessness; I10 Essential (primary) hypertension; R94.31 Abnormal electrocardiogram [ECG] [EKG]; Z71.51 Drug abuse counseling and surveillance of drug abuser; K52.9 Noninfective gastroenteritis and colitis, unspecified; E11.9 Type 2 diabetes mellitus without complications; B96.20 Unspecified Escherichia coli [E. coli] as the cause of diseases classified elsewhere; F09 Unspecified mental disorder due to known physiological condition
CPT/HCPCS: 36415; 36600; 70450; 71045; 76775; 80053; 80069; 80305; 80320; 81001; 82140; 82550; 82570; 82803; 82948; 83605; 83735; 83880; 84100; 84300; 84484; 85018; 85025; 85610; 87040; 87077; 87081; 87088; 87186; 87324; 87449; 89055; 93005; 93306; 96365; 99291; C9113; G0378; J0360; J0696; J1644; J1940; J2405; J3475; J3490; J7030; J7060

== ENCOUNTER 2020-06-27 18:09 | Emergency (ER) | payer MEDICARE, MEDICAID ==
[~2020-06-27] VITALS: Ht 188 cm; Wt 86.4 kg
[~2020-06-27 18:09] MED LIST changes: -FURO20TA4 PO; -LISI10TA4 PO; +NIFE-34 PO
[2020-06-27] MEDS ORDERED: TETanus/Pertussis (Acell)/Diphther VAC/PF (Tdap-Adult) 0.5ml syringe IMVAC ONE (21:05)
[2020-06-27 22:09] LABS: CLARITY,URINE CLEAR (Clear); COLOR,URINE YELLOW (Yellow); GLUCOSE, URINE NEGATIVE (Neg); KETONES,URINE NEGATIVE (Neg); LEUKOCYTE ESTERASE ,URINE NEGATIVE (Neg); NITRITES, URINE NEGATIVE (Neg); OCCULT BLOOD,URINE NEGATIVE (Neg); PH,URINE 5.5 (4.8-8.0); PROTEIN,URINE 30 mg/dl (Neg)
[2020-06-27 22:23] LABS: UA COLLECTION TYPE NON-SPECIFIED
[2020-06-27 22:24] LABS: BACTERIA,URINE NONE SEEN /HPF (Neg); RBC,URINE NONE SEEN /HPF (0-2); SQUAMOUS EPITHELIAL CELL,UR FEW /LPF (FEW); STARCH,URINE FEW /HPF (NEGATIVE); WBC,URINE NONE SEEN /HPF (0-4)
[2020-06-27 22:28] LABS: URINE AMPHETAMINE SCREEN POSITIVE (Neg); URINE BARBITUATE SCREEN NEGATIVE (Neg); URINE BENZODIAZEPINES SCREEN NEGATIVE (Neg); URINE CANNABINOID SCREEN NEGATIVE (Neg); URINE COCAINE SCREEN NEGATIVE (Neg); URINE METHADONE SCREEN NEGATIVE (Neg); URINE OPIATE SCREEN POSITIVE (Neg); URINE PHENCYCLIDINE SCREEN NEGATIVE (Neg)
[2020-06-27 22:50] LABS: BASOPHILS # (AUTO) 0.1 X10'3 (0-0.2); BASOPHILS % (AUTO) 0.5 % (0-1); EOSINOPHILS % (AUTO) 0 % (0-6); HEMATOCRIT 39.4 % (42.0-52.0); HEMOGLOBIN 12.5 g/dl (14.0-17.9); LYMPHOCYTES # (AUTO) 0.8 X10'3 (1.1-4.8); LYMPHOCYTES % (AUTO) 3.3 % (21-51); MEAN CORPUSCULAR HEMOGLOBIN 22.7 PG (27.0-31.0); MEAN CORPUSCULAR HGB CONC 31.7 g/dL (33.0-36.5); MEAN CORPUSCULAR VOLUME 71.6 FL (78-98); MEAN PLATELET VOLUME 9.8 FL (7.4-10.4); MONOCYTES # (AUTO) 1.9 X10'3 (0-0.9); MONOCYTES % (AUTO) 8.1 % (2-12); NEUTROPHILS # (AUTO) 21.1 X10'3 (1.8-7.7); NEUTROPHILS % (AUTO) 88.1 % (42-75); PLATELET COUNT 330 X10'3 (140-440); RED CELL DISTRIBUTION WIDTH 14.7 % (11.5-14.5); WHITE BLOOD COUNT 23.9 X10'3 (4.5-11.0)
[2020-06-27 23:17] LABS: ANISOCYTOSIS 1+; MICROCYTOSIS 1+; PLATELET ESTIMATE NORMAL; TOTAL CELLS COUNTED 100
[2020-06-27 23:41] LABS: ALANINE AMINOTRANSFERASE 23 U/L (12-78); ALBUMIN 2.6 G/DL (3.4-5.0); ALBUMIN/GLOBULIN RATIO 0.4 (1.1-1.5); ALKALINE PHOSPHATASE 101 IU/L (46-116); ANION GAP 8 (8-16); ASPARTATE AMINO TRANSFERASE 35 U/L (10-37); BILIRUBIN,TOTAL 0.9 MG/DL (0.1-1.0); BLOOD UREA NITROGEN 43 MG/DL (7-18); BUN/CREATININE RATIO 25.3 (5.4-32.0); CALCIUM 10.4 MG/DL (8.5-10.1); CHLORIDE 98 MMOL/L (99-107); GLUCOSE 136 MG/DL (70-104); POTASSIUM 4.4 MMOL/L (3.5-5.1); SODIUM 134 MMOL/L (135-145); TOTAL CARBON DIOXIDE 27.8 MMOL/L (24-32); eGFR 49 ML/MIN
--- NOTE | 2020-06-28 00:10 | NUR ---
GLADYS [phone]
[2020-06-28] MEDS ORDERED: sulfamethoxazole/trimethoprim DS (800/160mg) tablet PO ONE (00:15)
[2020-06-28] MEDS ORDERED: cephalexin 250mg capsule PO ONE (00:15)
[2020-06-28] MEDS ORDERED: CEPH250T PO (00:19)
[2020-06-28] MEDS ORDERED: SULF1TAB49 PO (00:19)
[2020-06-28 00:43] VITALS: BP 132/94
== END 2020-06-28 00:44 | disposition home or self-care (01) ==
LOC: ER 18:11
DX: L02.414 Cutaneous abscess of left upper limb (principal); I10 Essential (primary) hypertension; F15.10 Other stimulant abuse, uncomplicated; F11.10 Opioid abuse, uncomplicated; Z56.0 Unemployment, unspecified; Z79.899 Other long term (current) drug therapy
CPT/HCPCS: 10060; 10061; 36415; 80053; 80305; 81001; 83605; 84145; 85007; 85025; 85651; 87040; 90471; 90715; 99285

== ENCOUNTER 2020-07-15 16:51 | Emergency (ER) | payer MEDICARE, MEDICAID ==
[~2020-07-15] VITALS: Ht 188 cm; Wt 70.0 kg
[~2020-07-15 16:51] MED LIST changes: +DOXY100C76 PO; +METO50TA16 PO; -NIFE-34 PO; +NOR5T PO
[2020-07-15] MEDS ORDERED: DOXY100C43 PO (17:43)
[2020-07-15] MEDS ORDERED: acetaminophen 325mg tablet PO ONE (17:45)
[2020-07-15] MEDS ORDERED: ketorolac tromethamine 15mg/ml inj. IV ONE (17:45)
[2020-07-15 18:32] VITALS: BP 123/73
== END 2020-07-15 18:33 | disposition home or self-care (01) ==
LOC: ER 16:51
DX: T33.90XA Superficial frostbite of unspecified sites, initial encounter (principal); M79.672 Pain in left foot; M79.671 Pain in right foot; L03.116 Cellulitis of left lower limb; L03.115 Cellulitis of right lower limb; R05 Cough; I10 Essential (primary) hypertension; I25.2 Old myocardial infarction; F15.90 Other stimulant use, unspecified, uncomplicated; F11.90 Opioid use, unspecified, uncomplicated; Z59.0 Homelessness; Z79.2 Long term (current) use of antibiotics; Z79.899 Other long term (current) drug therapy; X31.XXXA Exposure to excessive natural cold, initial encounter; Y93.89 Activity, other specified; Y92.89 Other specified places as the place of occurrence of the external cause; Y99.8 Other external cause status
CPT/HCPCS: 96374; 99283; J1885